=== PATIENT | female | born 1960 | race Two or more races ===

== ENCOUNTER 2024-12-02 06:57 | Emergency (ER) | payer MEDICAID, MEDICARE, OTHER ==
[~2024-12-02] VITALS: Ht 157.5 cm; Wt 72.7 kg
[~2024-12-02 06:57] MED LIST: GABA-1216 PO; LEVO125T95 PO; OMEP20 PO; SERT-158 PO; SEVE800T38 PO; TRAZ-257 PO
[2024-12-02 07:22] VITALS: TEMP 97.7
[2024-12-02] MEDS ORDERED: HYDR50TA36 PO (08:58)
[2024-12-02] MEDS: LIDOCAINE 1% 10 ML VIAL SQ ONE (09:30)
[2024-12-02 12:15] VITALS: BP 185/99; PULSE 77; RESP 16; O2SAT 95
== END 2024-12-02 13:30 | disposition home or self-care (01) ==
LOC: EMS 06:58
DX: S01.81XA Laceration without foreign body of other part of head, initial encounter (principal); Z79.899 Other long term (current) drug therapy; W19.XXXA Unspecified fall, initial encounter; Y93.89 Activity, other specified; Y92.89 Other specified places as the place of occurrence of the external cause; Y99.8 Other external cause status
CPT/HCPCS: 99285; 73564; 12011; J3490